=== PATIENT | female | born 1955 | race Caucasian/White ===

== ENCOUNTER → 2017-05-31 | Emergency (ER) | payer OTHER ==
[~2017-05-31] VITALS: Ht 157.5 cm; Wt 80.7 kg
[~2017-05-31] MED LIST: ADALAT CC30 MG PO; CATAFLAM50 MG PO; NABUMETONE500 MG PO; ORPH100T PO; PRILOSEC20 MG; TENORMIN100 M1 PO; [UNRECOGNIZED DRUG - OTHER] PO
== END | disposition home or self-care (01) ==
LOC: ER 22:05
DX: G44.209 Tension-type headache, unspecified, not intractable (principal)

== ENCOUNTER 2019-05-11 13:29 | Emergency (ER) | payer OTHER ==
[~2019-05-11] VITALS: Ht 149.9 cm; Wt 78.9 kg
[2019-05-11] MEDS ORDERED: TRENTAL (13:50)
== END 2019-05-11 16:07 | disposition home or self-care (01) ==
LOC: ER 13:29
DX: M79.622 Pain in left upper arm (principal); M65.822 Other synovitis and tenosynovitis, left upper arm

== ENCOUNTER 2019-07-10 13:36 | Emergency (ER) | payer OTHER ==
[~2019-07-10] VITALS: Ht 147.3 cm; Wt 78.5 kg
[~2019-07-10 13:36] MED LIST changes: +TRENTAL
[2019-07-10] MEDS ORDERED: NIFEDIPINE20 MG PO (13:50)
[2019-07-10] MEDS ORDERED: BIOFLEX TABLET1 EACH PO (13:50)
== END 2019-07-10 17:38 | disposition home or self-care (01) ==
LOC: ER 13:36
DX: M79.622 Pain in left upper arm (principal)

== ENCOUNTER 2021-01-16 14:14 | Emergency (ER) | payer OTHER ==
[~2021-01-16] VITALS: Wt 74.4 kg
[~2021-01-16 14:14] MED LIST changes: +BIOFLEX TABLET1 EACH PO; +NIFEDIPINE20 MG PO
[2021-01-16] MEDS ORDERED: ECOTRIN81 MG (14:58)
[2021-01-16] MEDS ORDERED: TENTRAL (14:59)
== END 2021-01-16 19:50 | disposition home or self-care (01) ==
LOC: ER 14:14
DX: B34.9 Viral infection, unspecified (principal); J40 Bronchitis, not specified as acute or chronic; Z20.822 Contact with and (suspected) exposure to COVID-19

== ENCOUNTER 2021-01-19 12:30 | Outpatient (CLI) | payer OTHER | END 2021-01-19 14:30 | disposition home or self-care (01) | LOC: ASH CLINIC 12:30 | PROVIDERS: ATTEND General Practice | DX: Z23 Encounter for immunization (principal); U07.1 COVID-19 ==

== ENCOUNTER → 2021-01-19 | Emergency (ER) | payer OTHER ==
[~2021-01-19] MED LIST changes: +ECOTRIN81 MG; +TENTRAL
== END | disposition left against medical advice (07) ==
LOC: ER 13:26
DX: Z53.21 Procedure and treatment not carried out due to patient leaving prior to being seen by health care provider (principal)

== ENCOUNTER 2022-07-16 13:41 | Emergency (ER) | payer OTHER ==
[~2022-07-16] VITALS: Ht 152.4 cm; Wt 74.4 kg
[2022-07-16] MEDS ORDERED: TREANDA25 MG IV (14:16)
== END 2022-07-16 17:04 | disposition home or self-care (01) ==
LOC: ER 13:41
DX: S60.031A Contusion of right middle finger without damage to nail, initial encounter (principal); W19.XXXA Unspecified fall, initial encounter; Y93.9 Activity, unspecified; Y92.9 Unspecified place or not applicable

== ENCOUNTER 2022-12-20 09:55 | Emergency (ER) | payer OTHER ==
[~2022-12-20] VITALS: Ht 149.9 cm; Wt 73.9 kg
[~2022-12-20 09:55] MED LIST changes: +TREANDA25 MG IV
[2022-12-20] MEDS ORDERED: MACRODANTIN100 M1 PO (12:11)
== END 2022-12-20 12:58 | disposition home or self-care (01) ==
LOC: ER 09:55
DX: R42 Dizziness and giddiness (principal); R53.1 Weakness; Z20.822 Contact with and (suspected) exposure to COVID-19

== ENCOUNTER 2023-07-09 19:54 | Emergency (ER) | payer OTHER ==
[~2023-07-09] VITALS: Ht 152.4 cm; Wt 70.3 kg
[~2023-07-09 19:54] MED LIST changes: +MACRODANTIN100 M1 PO
[2023-07-09] MEDS ORDERED: MECLIZINE HCL 25 MG TABLET PO STA (20:38)
[2023-07-09 21:15] LABS: HEMATOCRIT 38.8 % (36.0-45.00); MEAN CELL VOLUME 85.7 fL (80.00-100.00); MEAN CORPUSCULAR HEMOGLOBIN 28.8 pg (27.00-32.0); MEAN CORPUSCULAR HGB CONC 33.6 g/dl (32.0-36.0); PLATELET COUNT 278 K/uL (150-450); RED BLOOD COUNT 4.53 M/uL (4.00-6.00); RED CELL DISTRIBUTION WIDTH 14.2 % (11.5-14.5)
[2023-07-09 21:45] LABS: CALCIUM 9.2 mg/dL (8.5-10.1); CREATININE SERUM 0.73 mg/dL (0.55-1.02); GFR 80.01; POTASSIUM 4.09 mEq/L (3.5-5.1)
== END 2023-07-09 22:30 | disposition home or self-care (01) ==
LOC: ER 19:54
PROVIDERS: General Practice
DX: H81.13 Benign paroxysmal vertigo, bilateral (principal); Z91.018 Allergy to other foods; Z91.013 Allergy to seafood

== ENCOUNTER 2025-02-27 09:38 | Emergency (ER) | payer OTHER ==
[~2025-02-27] VITALS: Ht 134.6 cm; Wt 69.4 kg
[2025-02-27] MEDS ORDERED: MECLIZINE HCL 12.5 MG TABLET PO ONE ×2 (11:45→11:49)
[2025-02-27 12:53] LABS: BASO % 0.3 % (0.1-1.2); EOS # 0.29 (0.04-0.54); EOS % 3.2 % (0.7-7.0); LYMPH # 2.62 (1.18-3.74); LYMPH % 28.8 % (19.3-53.1); MEAN PLATELET VOLUME 9.40 fl (9.4-12.4); MONO # 0.63 (0.24-0.82); MONO % 6.9 % (4.7-12.5); NEUT # 5.52 (1.56-6.13); NEUT % 60.6 % (34.0-71.1); RED CELL DISTRIBUTION WIDTH 13.3 % (11.6-14.4)
[2025-02-27 13:24] LABS: BUN CREA RATIO 19.0 (7.0-25.0); CREATININE SERUM 0.7 mg/dL (0.55-1.02); GFR 83.46; GLUCOSE FASTING 125.0 mg/dL (65-100); OSMOLALITY SERUM 287.0 MOSM/KG (275-295)
[2025-02-27] MEDS ORDERED: ANTIVERT25 M2 PO (14:23)
== END 2025-02-27 14:47 | disposition home or self-care (01) ==
LOC: ER 09:38
PROVIDERS: General Practice
DX: R42 Dizziness and giddiness (principal); R51.9 Headache, unspecified; I10 Essential (primary) hypertension; Z91.013 Allergy to seafood; Z91.018 Allergy to other foods

== ENCOUNTER 2025-04-01 10:57 | Emergency (ER) | payer OTHER ==
[~2025-04-01] VITALS: Ht 149.9 cm; Wt 66.7 kg
[~2025-04-01 10:57] MED LIST changes: +ANTIVERT25 M2 PO
[2025-04-01 11:32] VITALS: BP 125/77; O2SAT 98
[2025-04-01] MEDS ORDERED: MECLIZINE HCL 25 MG TABLET PO ONE ×2 (13:00→13:12)
[2025-04-01 13:42] LABS: BASO % 0.4 % (0.1-1.2); EOS # 0.42 (0.04-0.54); EOS % 3.4 % (0.7-7.0); LYMPH # 2.75 (1.18-3.74); LYMPH % 22.3 % (19.3-53.1); MEAN PLATELET VOLUME 10.00 fl (9.4-12.4); MONO # 0.77 (0.24-0.82); MONO % 6.3 % (4.7-12.5); NEUT # 8.30 (1.56-6.13); NEUT % 67.4 % (34.0-71.1); RED CELL DISTRIBUTION WIDTH 13.4 % (11.6-14.4)
[2025-04-01 14:04] LABS: BUN CREA RATIO 23.0 (7.0-25.0); CREATININE SERUM 0.62 mg/dL (0.55-1.02); GFR 96.01; GLUCOSE FASTING 111.0 mg/dL (65-100); OSMOLALITY SERUM 284.0 MOSM/KG (275-295)
[2025-04-01] MEDS ORDERED: ANTIVERT25 M2 PO (14:51)
== END 2025-04-01 15:00 | disposition home or self-care (01) ==
LOC: ER 10:57
PROVIDERS: Student in an Organized Health Care Education/Training Program
DX: T75.3XXA Motion sickness, initial encounter (principal); R42 Dizziness and giddiness; Z91.018 Allergy to other foods; Z91.013 Allergy to seafood; R00.2 Palpitations